=== PATIENT | male | born 1990 | race Asian ===

== ENCOUNTER 2019-05-22 08:36 | Emergency (ER) | payer SELFPAY ==
[~2019-05-22] VITALS: Ht 185.4 cm; Wt 65.0 kg
[2019-05-22 12:01] VITALS: BP 108/64
== END 2019-05-22 12:03 | disposition home or self-care (01) ==
LOC: ER 08:36
DX: B34.9 Viral infection, unspecified (principal)
CPT/HCPCS: 71045; 99283